=== PATIENT | female | born 1995 | race Caucasian/White ===

== ENCOUNTER 2021-07-13 19:53 | Emergency (ER) | payer MEDICAID, OTHER ==
[2021-07-13 20:35] LABS: Bilirubin Negative (Negative); Blood, Urine Negative (Negative); Clarity Cloudy (Clear); Glucose, Urine (Dipstick) Negative (Negative); Ketone, Urine Negative (Negative); Leukocyte Negative (Negative); Nitrite Negative (Negative); Protein, Urine (Dipstick) Negative (Neg-Trace); Urobilinogen 0.2 mg/dL (Less than 2); pH, Urine 8.5 (5.0-9.0)
[2021-07-13 21:10] LABS: Wet Prep Clue Cells Clue Cells Absent (None Seen); Wet Prep Trichomonas Trichomonas Absent (None Seen)
[2021-07-13 21:11] LABS: Wet Prep Pathologist Review Spermatozoa Absent (None Seen); Wet Prep Spermatozoa 2nd Revie Agree with result (None Seen)
[2021-07-14 21:53] LABS: Chlamydia by PCR Not Detected (NotDetected); GC by PCR Not Detected (NotDetected)
== END 2021-07-13 21:45 | disposition home or self-care (01) ==
LOC: NAV ERS 19:53
DX: O99.891 Other specified diseases and conditions complicating pregnancy (principal); M54.9 Dorsalgia, unspecified; N89.8 Other specified noninflammatory disorders of vagina; Z3A.19 19 weeks gestation of pregnancy
CPT/HCPCS: 81003; 87070; 87210; 87491; 87591; 99284